=== PATIENT | female | born 1980 | race Caucasian/White ===

== ENCOUNTER → 2023-01-19 | Outpatient (CLI) | payer BC ==
[~2023-01-19] MED LIST: ALDACTONE 25MG25 MG PO; [UNRECOGNIZED DRUG - OTHER]; [UNRECOGNIZED DRUG - OTHER]
== END ==
LOC: MC.RAD 10:45
DX: Z12.31 Encounter for screening mammogram for malignant neoplasm of breast (principal)

== ENCOUNTER → 2024-01-21 | Outpatient (CLI) | payer BC | LOC: MC.RAD 07:30 | DX: Z12.31 Encounter for screening mammogram for malignant neoplasm of breast (principal) ==